=== PATIENT | male | born 1990 | race Two or more races ===

== ENCOUNTER 2019-02-07 02:41 | Emergency (ER) | payer SELFPAY ==
[~2019-02-07] VITALS: Ht 172.7 cm; Wt 81.0 kg
[2019-02-07] MEDS ORDERED: HYDROCODONE/ACETAMINOPHEN 5/325MG TABLET PO ONE (03:15)
[2019-02-07] MEDS ORDERED: IBUPROFEN 600MG TABLET PO ONE (03:15)
[2019-02-07] MEDS ORDERED: ONDANSETRON HCL 4MG/2ML INJ IV ONE (04:15)
[2019-02-07] MEDS ORDERED: ETOMIDATE 2MG/ML 10ML VIAL IV ONE (04:15)
[2019-02-07 08:17] VITALS: BP 119/72
== END 2019-02-07 08:18 | disposition home or self-care (01) ==
LOC: ER 03:27
DX: S43.004A Unspecified dislocation of right shoulder joint, initial encounter (principal); X58.XXXA Exposure to other specified factors, initial encounter; Y93.89 Activity, other specified; Y92.89 Other specified places as the place of occurrence of the external cause; Y99.8 Other external cause status
CPT/HCPCS: 23650; 73030; 96374; 99152; 99285; J2405; J3490; Z7610